=== PATIENT | male | born 1935 | race Caucasian/White ===

== ENCOUNTER → 2016-10-21 | Outpatient (CLI) | payer MEDICARE, OTHER ==
[2016-10-21 12:33] LABS: Non-African American GFR(MDRD) >60 (>60 ml/min/1.73 sqM)
--- NOTE | 2016-10-21 14:27 | MR ---
EXAMINATION TYPE: MR brain and iac wo/w con DATE OF EXAM: 10/21/2016 COMPARISON: NONE HISTORY: acoustic nerve disorder hearing loss, left TECHNIQUE: Multiplanar, multisequence images of the internal auditory canals, brain and brainstem are all perfor med without and with IV contrast, utilizing 20 mL intravenous MultiHance . FINDINGS: Diffusion weighted images demonstrate no evidence of a recent infarct or other diffusion ab normality. There is no worrisome extra-axial fluid collection. The ventricular system and cisternal spaces are normal in size and appearance. The brain volume is age appropriate. There are scattered foci of T2 hyperintensity seen throughout the deep and periventricular white matter. Lesions are nons pecific in appearance and distribution. Largest measures 9 x 8 mm deep left parietal white matter on FLAIR axial image 16. Midline structures demonstrate normal morphology. The craniocervical junction appears within normal limits. Post contrast images demonstrate no abnormal enhancement. The dural venous sinuses appear pa tent. The globes are intact bilaterally. Visualized paranasal sinuses are clear. Dedicated IAC imaging shows minimal increased fluid signal inferior deep left mastoid air cells on ax ial image 7 series 701. Superior to this the vestibulocochlear complexes are symmetric and felt withi n normal limits. No suspicious enhancing cerebellopontine angle mass is identified bilaterally. IMPRESSION: 1. Mild to moderate nonspecific white matter changes most likely on basis of product of chronic small vessel ischemic change in patient this age. 2. Possible mild deep inferior left mastoiditis, clinical correlation advised.
== END | disposition home or self-care (01) ==
LOC: RADMRIMAIN 11:52
PROVIDERS: ATTEND Otolaryngology
DX: R90.82 White matter disease, unspecified (principal); H91.90 Unspecified hearing loss, unspecified ear
CPT/HCPCS: 82565; 70553; A9577

== ENCOUNTER → 2017-05-19 | Outpatient (CLI) | payer MEDICARE, OTHER ==
--- NOTE | 2017-05-19 12:05 | CT ---
EXAMINATION TYPE: CT sinus wo con DATE OF EXAM: 05/19/2017 COMPARISON: NONE HISTORY: Sinus drainage and congestion for years CT DLP: 618.1 mGycm. Automated Exposure Control for Dose Reduction was Utilized. TECHNIQUE: CT scan of the sinuses is performed without contrast, axial images are obtained, coronal r eformatted images are also reviewed. FINDINGS: There is a small mucous retention cyst involving the base of the right maxillary sinus and mild mucosal thickening involving ethmoid air cells. There is to be evidence of previous surgery invo lving the ostium of the maxillary sinus which is patent bilaterally. Slight nasal septum deviation fraser spected. Visualized portion of mastoid air cells show no abnormal opacification. The globes are intact bilate rally. IMPRESSION: 1. Postsurgical change with the ostium of the maxillary sinuses widely patent. 2. Minimal changes of chronic sinusitis.
== END | disposition home or self-care (01) ==
LOC: RADCTMAIN 11:30
PROVIDERS: ATTEND Otolaryngology
DX: J32.9 Chronic sinusitis, unspecified (principal); Z98.890 Other specified postprocedural states
CPT/HCPCS: 70486

== ENCOUNTER 2017-07-13 07:53 | Day surgery (SDC) | payer MEDICARE, OTHER ==
[2017-07-12 09:21] VITALS: BMI 27.2
[~2017-07-13 07:53] MED LIST: FAMOTIDINE 20 MG/2 ML VIAL IV ONE; LACTATED RINGERS 1,000 ML IV SCH; ONDANSETRON 4 MG/2 ML VIAL IVP ONE; Pre Op ABX Message 1 EACH MISC MISCELLANE ONE
[2017-07-13] MEDS ORDERED: DEXAMETHASONE SOD PHOSPHATE 10 MG/ML 1 ML VIAL IV ONE (08:41)
[2017-07-13] MEDS ORDERED: ONDANSETRON 4 MG/2 ML VIAL IVP ONE (08:41)
[2017-07-13] MEDS ORDERED: LIDOCAINE 1% 20 ML VIAL (10MG/ML) FOR IV START INTRADERMA ONE (08:41)
[2017-07-13] MEDS ORDERED: LIDOCAINE 1% INJ 10MG/ML (20 ML MDV) ONE (09:40)
[2017-07-13] MEDS ORDERED: SUCCINYLCHOLINE CHLORIDE 100 MG/5 ML SYR IV ONE (09:40)
[2017-07-13] MEDS ORDERED: MIDAZOLAM 2 MG/2 ML VIAL ONE (09:40)
[2017-07-13] MEDS ORDERED: fentaNYL (PF) 50 MCG/ML 2 ML AMP ONE (09:40)
[2017-07-13] MEDS ORDERED: PROPOFOL 10 MG/ML 20 ML VIAL IV ONE (09:40)
[2017-07-13] MEDS ORDERED: LIDOCAINE 1%-EPI 1:100,000 20 ML VIAL SQ ONE (09:56)
[2017-07-13] MEDS ORDERED: CIPROFLOXACIN-DEXAMETH 0.3-0.1% DROPS 7.5 ML BTL LEFT EAR ONE (09:56)
[2017-07-13] MEDS ORDERED: OXYMETAZOLINE 0.05% NASL SPRAY 1 SPRAY BOTTLE NASAL ONE (10:11)
[2017-07-13 10:36] VITALS: TEMP 97
--- NOTE | 2017-07-13 10:38 | P.OP ---
Date of Procedure: 07/13/17 Preoperative Diagnosis: Left mastoiditis Left eustachian tube dysfunction Left hypertrophy of the posterior nasal inferior turbinate. Left tympanic membranes perforation from infection Left vallecular mass Postoperative Diagnosis: Same Procedure(s) Performed: Left direct microscopic tympanostomy and tube placement utilizing a triune tube. Left middle ear lavage Left myringoplasty Left eustachian tuboplasty endoscopic Left submucosal resection of the posterior inferior turbinate with outfracturing compression Direct microscopic laryngoscopy with biopsy of a left vallecular mass Anesthesia: GETA Surgeon: Jamil Peter Estimated Blood Loss (ml): 5 Pathology: other (Left vallecular mass) Condition: stable Disposition: PACU Indications for Procedure: This patient had a left-sided mastoiditis and a persistent station tube dysfunction. Left tube placement was recommended that the patient has had persistent infection on the left side. He was also found incidentally to have a vallecular mass and a biopsy was recommended. All risks, benefits, and alternative therapies were discussed. Consent was obtained and all questions were answered. Operative Findings: Patient was found have a diseased left tympanic membrane with breakdown. A myringoplasty was needed on the left side after tube placement. Patient was found have a large amount of edematous material in the eustachian tube. Patient had a left vallecular mass Description of Procedure: Patient was taken to the operative room and placed in the supine position. A general inhalation anesthetic was administered to the patient by mask and subsequently intubated with a cuffed endotracheal tube by the department of anesthesia with a functioning IV line in place. The patient was monitored throughout the entire case by the department of anesthesia. The left ear was visualized with a 250 mm microscope and the left ear drum was identified and found be erythematous there is a large amount of granulation tissue and breakdown around the inferior portion of the tympanic membrane. This diseased tissue was removed and a perforation was identified. We prepped the drumhead around this perforation and we cut a bio design graft and placed it as an overlay graft to repair this diseased tissue. We then made a tympanostomy incision inferiorly on the opposite side of the eardrum and a triune tube was placed and fluid was suctioned. A middle ear lavage was performed with Betadine and saline. After the left tympanic membrane whole was patched with a bio design graft and a left tube was placed and lavage was performed instrumentation was removed from the left ear we then paid attention to the nose were endoscopically we went into the nose with a 0 endoscope and identified the eustachian tube orifice we removed with a microdebrider the posterior portion the inferior turbinate submucosally and after we did a submucosal resection we did and outfracturing compression with a Sensdata nasal elevator. That opened up the eustachian tube orifice on the left side we then inserted and the clamp balloon in the standard fashion and inflated this in a standard fashion and then the station tuboplasty was performed utilizing balloon technology and endoscopic visualization. Instrumentation was removed attention was then paid to the mouth where tooth guard was placed and a Jako laryngoscope was placed into the patient's mouth with care to avoid any trauma to the lips teeth gums and tongue. Mouth was opened tongue was depressed and the entire [place] and hypopharynx was evaluated including the piriform sinus epiglottic folds Treutlen cords base of tongue etc. etc. A left vallecular mass was identified magnified with a endoscope and then biopsies were performed. We utilized the Zeiss microscope for visualization lysing a variable degree microscope. Once this lesion was biopsied and removed all instrumentation was removed and the patient tolerated this well. Follow-up will be in the office in 1 week.
[2017-07-13 12:02] VITALS: RESP 16
[2017-07-13 12:21] VITALS: BP 165/72; PULSE 75
== END 2017-07-13 12:48 | disposition home or self-care (01) ==
LOC: OR 07:53
PROVIDERS: ATTEND Otolaryngology
DX: J39.2 Other diseases of pharynx (principal); H70.92 Unspecified mastoiditis, left ear; H69.92 Unspecified Eustachian tube disorder, left ear; J34.3 Hypertrophy of nasal turbinates; H72.92 Unspecified perforation of tympanic membrane, left ear; H65.492 Other chronic nonsuppurative otitis media, left ear; J44.9 Chronic obstructive pulmonary disease, unspecified; H91.20 Sudden idiopathic hearing loss, unspecified ear; J30.9 Allergic rhinitis, unspecified; M19.90 Unspecified osteoarthritis, unspecified site; K21.9 Gastro-esophageal reflux disease without esophagitis; K44.9 Diaphragmatic hernia without obstruction or gangrene; Z79.51 Long term (current) use of inhaled steroids; Z79.899 Other long term (current) drug therapy; Z79.2 Long term (current) use of antibiotics; Z79.82 Long term (current) use of aspirin; Z79.1 Long term (current) use of non-steroidal anti-inflammatories (NSAID); Z88.5 Allergy status to narcotic agent; Z88.8 Allergy status to other drugs, medicaments and biological substances; Z91.011 Allergy to milk products; Z91.018 Allergy to other foods; Z91.09 Other allergy status, other than to drugs and biological substances; Z87.891 Personal history of nicotine dependence
CPT/HCPCS: 88305; 69620; 30140; 31536; C1763; J2250; J1100; J2405; J2001; J3010; J0330; J2704

== ENCOUNTER → 2020-04-03 | Outpatient (CLI) | payer MEDICARE, OTHER ==
[2020-04-03 12:23] LABS: Basophils % (A) 1 %; Eosinophils # (A) 0.2 k/uL (0-0.7); Eosinophils % (A) 4 %; HGB 12.2 gm/dL (13.0-17.5); Lymphocytes # (A) 1.1 k/uL (1.0-4.8); Lymphocytes % (A) 21 %; MCH 25.7 pg (25.0-35.0); MCHC 32.1 g/dL (31.0-37.0); MCV 80.1 fL (80.0-100.0); Mean Platelet Volume 7.5; Monocytes # (A) 0.3 k/uL (0-1.0); Monocytes % (A) 6 %; Neutrophils # (A) 3.4 k/uL (1.3-7.7); Neutrophils % (A) 66 %; Platelet Count 233 k/uL (150-450); RBC 4.74 m/uL (4.30-5.90); RDW 14.7 % (11.5-15.5); WBC 5.2 k/uL (3.8-10.6)
[2020-04-03 12:43] LABS: Potassium 4.5 mmol/L (3.5-5.1)
== END | disposition home or self-care (01) ==
LOC: LABPAT 11:32
PROVIDERS: ATTEND Urology
DX: Z01.818 Encounter for other preprocedural examination (principal); G56.01 Carpal tunnel syndrome, right upper limb; M65.351 Trigger finger, right little finger
CPT/HCPCS: 80051; 85025

== ENCOUNTER 2020-04-07 12:04 | Day surgery (SDC) | payer MEDICARE, OTHER ==
[2020-03-30 14:25] VITALS: BMI 26.8
--- NOTE | 2020-04-06 09:40 | HP ---
HISTORY AND PHYSICAL CHIEF COMPLAINT: Right hand pain and numbness along with right fifth digit trrggering. HISTORY OF PRESENT ILLNESS: Patient is an 84-year-old, right-hand dominant, retired male who presents with a several year history of progressive right hand pain and numbness along with recent right fifth digit triggering. He notes his symptoms are worse in the morning. He has numbness and weakness. He notes catching and locking of the small finger. He has had history of previous trigger finger releases and other digits. PAST MEDICAL HISTORY: Past medical history significant for arthritis and asthma along with reflux disease. PAST SURGICAL HISTORY: Significant bilateral hand trigger finger release. CURRENT MEDICATIONS: Aspirin, ranitidine, sertraline, Ventolin. He notes allergies to STATINS. FAMILY HISTORY: Significant for cancer. SOCIAL HISTORY: Negative for current tobacco or alcohol use. 16 POINT REVIEW OF SYSTEMS: Otherwise is reviewed and is noncontributory. PHYSICAL EXAMINATION: On examination, the patient is approximately 5 foot 9, 187 pounds of mesomorphic habitus. HEENT: Exam is nonfocal. NECK: Supple. He is nontender about the right shoulder and elbow. On examination of his right wrist, he has a positive carpal tunnel compression test. He has severe thenar atrophy. Adductor pollicis brevis strength is 4/5. Light touch is diffusely diminished in all his digits. There is catching and locking of the small finger with flexion. He is tender over the A1 heide of the small finger. 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 IMPRESSION: 1. Symptom for right carpal tunnel syndrome-severe. 2. Right fifth digit trigger finger. RECOMMENDATIONS: I talked to the patient at length regarding his condition and treatment options. At this point, he is quite symptomatic despite previous extensive conservative measures with bracing and injections. After thorough discussion, he opts to proceed with surgery. We will plan to proceed with right carpal tunnel release in addition to right small finger trigger release. We will likely perform that as an outpatient procedure utilizing local anesthetic and IV sedation. MMODL / IJN: [id number] /
[~2020-04-07 12:04] MED LIST changes: +DEXAMETHASONE SOD PHOSPHATE 4 MG/ML 1 ML VIAL IV ONE; -FAMOTIDINE 20 MG/2 ML VIAL IV ONE; +HYDROmorphone 0.5 MG/0.5 ML SYRINGE IVP PRN; +LIDOCAINE 1% (10MG/ML) FOR IV START INTRADERMA PRN; +MIDAZOLAM 2 MG/2 ML VIAL IV PRN; -Pre Op ABX Message 1 EACH MISC MISCELLANE ONE
[2020-04-07 12:32] VITALS: TEMP 96.9
[2020-04-07] MEDS ORDERED: fentaNYL (PF) 50 MCG/ML 2 ML AMP ONE (13:17)
[2020-04-07] MEDS ORDERED: diphenhydrAMINE 50 MG/ML 1 ML VIAL ONE (13:17)
[2020-04-07] MEDS ORDERED: PROPOFOL 10 MG/ML 20 ML VIAL IV ONE (13:17)
[2020-04-07] MEDS ORDERED: MIDAZOLAM 2 MG/2 ML VIAL ONE (13:17)
[2020-04-07] MEDS ORDERED: BUPIVACAINE (PF) 0.25% 30 ML VIAL SQ ONE (13:23)
--- NOTE | 2020-04-07 14:05 | P.OP ---
Date of Procedure: 04/07/20 Preoperative Diagnosis: Right carpal tunnel syndrome/right fifth digit trigger fingersymptomatic Postoperative Diagnosis: Same Procedure(s) Performed: Right carpal tunnel release/fifth digit trigger release Anesthesia: MAC, local Surgeon: Manoj Ham Estimated Blood Loss (ml): 2 Pathology: none sent Condition: stable Disposition: PACU Indications for Procedure: The patient is an 84-year-old male presents with progressive right hand pain and numbness along with right fifth digit triggering/locking despite conservative measures. A discussion of the risks and benefits of operative intervention versus continued conservative measures was made with patient. He opted proceed with surgery. Specific risks of surgery to include infection, neurovascular injury, development of blood clots, possible recurrence of symptoms and need for subsequent procedures was discussed. Informed consent was obtained. Operative Findings: As below Description of Procedure: The patient was brought to the operating room, and after induction of IV sedation the right upper extremity was prepped and draped in normal fashion. The proposed incision site was outlined skin marker in line with the radial aspect the fourth ray extending from the volar wrist crease distally 2-1/2 cm. One quarter percent plain Marcaine was injected into the proposed incision site. 9 mL was utilized. The tourniquet was inflated to 250 mmHg. The skin incision was then made. The skin was incised sharply. Subcutaneous tissues were divided sharply the superficial palmar fascia was identified and split in line with the skin incision. The transverse carpal ligament was identified and transected under direct visualization distally to level the palmar fat pad. Proximal was taken level of the volar wrist crease. A plane above and below the transverse carpal ligament was then bluntly developed with tenotomies. The confluence of the distal forearm fascia and the transverse carpal ligament was then transected under direct visualization proximally with the tines pointed in the ulnar direction. I felt this was adequate proximal release. Neural lysis was not performed. The wound was irrigated with normal saline. Electrocautery was used for hemostasis. The skin was reapproximated with simple 3-0 nylon sutures. A 1 cm incision was then made centered over the fifth digit volar distal crease. Skin was incised sharply. Subcutaneous tissues were divided bluntly. The neurovascular bundles were gently retracted. The A1 heide was identified and transected under direct correct visualization proximal and distal. Tendon excursion was then un impeded. This incision was closed with simple 3-0 nylon sutures. A sterile dressing was applied. The tourniquet was deflated with less than 20 minutes total tourniquet time. Patient was awoken from sedation and transferred to the recovery room in good condition. Blood loss was estimated 2 mL. No complications were incurred. Sponge and needle counts were correct at the end the case.
[2020-04-07 14:11] VITALS: PULSE 57
[2020-04-07 14:21] VITALS: RESP 16
[2020-04-07 14:47] VITALS: BP 158/62
== END 2020-04-07 15:15 | disposition home or self-care (01) ==
LOC: OR 12:04
PROVIDERS: ATTEND Orthopaedic Surgery
DX: G56.01 Carpal tunnel syndrome, right upper limb (principal); M65.351 Trigger finger, right little finger; M19.90 Unspecified osteoarthritis, unspecified site; J45.909 Unspecified asthma, uncomplicated; Z80.9 Family history of malignant neoplasm, unspecified; K21.9 Gastro-esophageal reflux disease without esophagitis; N40.0 Benign prostatic hyperplasia without lower urinary tract symptoms; G43.909 Migraine, unspecified, not intractable, without status migrainosus; K44.9 Diaphragmatic hernia without obstruction or gangrene; Z79.1 Long term (current) use of non-steroidal anti-inflammatories (NSAID); Z98.890 Other specified postprocedural states; Z79.82 Long term (current) use of aspirin; Z79.899 Other long term (current) drug therapy; Z91.011 Allergy to milk products; Z91.018 Allergy to other foods; Z91.048 Other nonmedicinal substance allergy status; Z88.8 Allergy status to other drugs, medicaments and biological substances
CPT/HCPCS: 64721; 26055; J2250; J1200; J1100; J0690; J2405; J3010; J2704

== ENCOUNTER → 2021-02-12 | Outpatient (CLI) | payer MEDICARE, OTHER ==
--- NOTE | 2021-02-12 08:51 | CT ---
EXAMINATION TYPE: CT chest abdomen wo con DATE OF EXAM: 02/12/2021 COMPARISON: CT abdomen and pelvis December 30, 2013 HISTORY: Hiatal hernia CT DLP: 533.2 mGycm. Automated Exposure Control for Dose Reduction was Utilized. TECHNIQUE: CT scan of the thorax and abdomen are performed with oral but without IV contrast. FINDINGS: LUNGS: The lungs are grossly clear, there is no concerning parenchymal mass or nodule identified. T here is no pleural effusion or pneumothorax seen. The tracheobronchial tree is patent. MEDIASTINUM: Lack of IV contrast is noted to Limited evaluation for adenopathy. There are no greater than 1 cm mediastinal lymph nodes. Trace pericardial effusion is seen anteriorly. Mild to moderate c oronary artery calcification. No cardiomegaly. OTHER: Prominent but hyperdense possibly calcified left axillary lymph nodes. Adjacent streak artifac t from metallic hardware left shoulder level is noted. LIVER/GB: No significant abnormality is appreciated. PANCREAS: No significant abnormality is seen. SPLEEN: No significant abnormality is seen. ADRENALS: No significant abnormality is seen. KIDNEYS: Cortical thinning in both kidneys. Occasional tiny cyst. Findings consistent with chronic me dical renal disease. Possible punctate 1 mm nonobstructing calculus right kidney upper pole level nayla ge 54. No hydronephrosis seen bilaterally. BOWEL: Stable moderate to large sized fixed hiatal hernia with abnormal twisting of the herniated por tion of stomach. No significant change from 2014. Oral contrast does not reach glottic level. No susp icious small or large bowel dilatation. LYMPH NODES: No greater than 1cm abdominal lymph nodes are appreciated. OSSEOUS STRUCTURES: Mild to moderate multilevel spurring with multilevel mild disc space narrowing an d vacuum disc phenomenon. Most prominent disc space narrowing is at the thoracolumbar and the lumbosa cral junctions. Slight grade 1 anterolisthesis L4 on L5. Vacuum disc phenomenon in the lower lumbar l evels. OTHER: No significant additional abnormality is seen. IMPRESSION: Stable moderate to large sized fixed hiatal hernia with twisting of the herniated stomach . No significant change from 2014 study.
== END | disposition home or self-care (01) ==
LOC: RADCTMAIN 06:53
PROVIDERS: ATTEND Pediatrics
DX: K44.9 Diaphragmatic hernia without obstruction or gangrene (principal)
CPT/HCPCS: 71250; 74150

== ENCOUNTER → 2021-07-02 | Outpatient (CLI) | payer OTHER | END | disposition home or self-care (01) | LOC: LABWHC1 12:21 | PROVIDERS: ATTEND Pediatrics | DX: Z53.9 Procedure and treatment not carried out, unspecified reason (principal) ==

== ENCOUNTER → 2021-09-24 | Outpatient (CLI) | payer MEDICARE ==
--- NOTE | 2021-09-26 21:16 | CT ---
EXAMINATION TYPE: CT shoulder LT wo con CT DLP: 404.80 mGycm, Automated exposure control for dose reduction was used. DATE OF EXAM: 09/24/2021 6:07 PM COMPARISON: CT chest abdomen pelvis 02/12/2021. CLINICAL INDICATION:Male, 85 years old with history of Z96.612; recent left shoulder sx TECHNIQUE: Axial images were obtained of the left shoulder without the use of IV contrast. Additiona l coronal and sagittal reformatted images and soft tissue and bone window were obtained for review. 3 -D reconstruction was created on a separate workstation. FINDINGS: There is an antibiotic impregnated cement arthroplasty. There is a linear line at the junct ion of the antibiotic infused cement and [place] bone suggest interface rather than fracture. The arm is rotated posteriorly 90 degrees. There is a chronically rotator cuff tear with severe muscle atroph y of the rotator cuff muscles. There is superior subluxation of the joint into the acromion undersurf ronnie. There is bony remodeling of the acromion with os acromiale versus stress fracture. The glenoid i s eroded and remodeled with at least 18 degrees of glenoid retroversion. There is bony and metallic d ebris within the joint. There is a moderate to large effusion extends from the head down the proximal shaft. Multilevel disc degeneration changes seen throughout the spine. Multiple partially calcified lymph no nannette are seen within the axilla and clavicular region on the left. Partially calcified lymph nodes are similar to prior CT IMPRESSION: 1. Antibiotic impregnated cement arthroplasty with large joint effusion with osseous and metallic de bris. 2. Superior subluxation of the humerus respect to the glenoid which erodes into the acromion where t here is either a os acromiale versus stress fracture of the acromion. 3. Live rotator cuff muscle atrophy. 4. Additional fat findings as described above.
== END | disposition home or self-care (01) ==
LOC: RADCTMAIN 17:34
PROVIDERS: ATTEND Orthopaedic Surgery
DX: M25.412 Effusion, left shoulder (principal); M62.50 Muscle wasting and atrophy, not elsewhere classified, unspecified site; S43.002A Unspecified subluxation of left shoulder joint, initial encounter; Z96.612 Presence of left artificial shoulder joint

== ENCOUNTER 2022-02-05 15:33 | Emergency (ER) | payer MEDICARE ==
[2022-02-05 15:54] VITALS: TEMP 98.2
--- NOTE | 2022-02-05 17:54 | ED ---
Recheck HPI - General Chief Complaint: Recheck/Abnormal Lab/Rx Stated Complaint: Post-op L shoulder issue Time Seen by Provider: 02/05/22 16:12 Source: patient Mode of arrival: ambulatory Limitations: no limitations - History of Present Illness Initial Comments: Patient is an 86-year-old male presents to the emergency room with his granddaughter with concerns of increased amount of drainage from his surgical site to his left shoulder. He reports that he was advised to seek medical attention if the dressing became saturated. He states that he felt drainage from the wound and was concerned that his site was bleeding significantly. He denies any increased pain, purulent drainage, foul odor, fevers, chills or lack of adherence to a mobilization. He attempted to contact his surgeon but did not receive a call back. He has had multiple surgeries on his left shoulder with his most recent one being completed 5 days ago. In addition to his osteoarthritis history his past medical history significant for hyperlipidemia, depression and prostate disease. - Related Data Home Medications Medication Instructions Recorded Confirmed Aspirin [Adult Low Dose Aspirin EC] 81 mg PO DAILY 07/12/17 04/07/20 Fexofenadine HCl [Sade Allergy] 180 mg PO DAILY 07/12/17 04/07/20 Finasteride [Proscar] 5 mg PO HS 07/12/17 04/07/20 Fluticasone Nasal [place] [Flonase 2 spray EA NOSTRIL HS 07/12/17 04/07/20 Nasal [place]] Pantoprazole Sodium 40 mg PO DAILY 07/12/17 04/07/20 Sertraline [Zoloft] 100 mg PO DAILY 07/12/17 04/07/20 Alfuzosin HCl [Uroxatral] 10 mg PO DAILY 03/30/20 04/07/20 Celecoxib [CeleBREX] 200 mg PO BID 03/30/20 04/07/20 Famotidine [Pepcid] 40 mg PO HS 03/30/20 04/07/20 Allergies Allergy/AdvReac Type Severity Reaction Status Date / Time Beef Containing Products Allergy Unknown Verified 02/05/22 15:54 [Beef] Milk Containing Products Allergy Unknown Verified 02/05/22 15:54 [Dairy] Qaczcnm-QMN-UrN Reductase Allergy leg cramps Verified 02/05/22 15:54 Inhibitor [Luewrzs-Qgq-Ihf Reductase Inhibitor] dust,mold,grass,trees Allergy Unknown Uncoded 02/05/22 15:54 grains Allergy Unknown Uncoded 02/05/22 15:54 Review of Systems ROS Statement: Those systems with pertinent positive or pertinent negative responses have been documented in the HPI. ROS Other: All systems not noted in ROS Statement are negative. Past Medical History Past Medical History: Hyperlipidemia, Osteoarthritis (OA), Pneumonia, Prostate Disorder Additional Past Medical History / Comment(s): Hiatal hernia History of Any Multi-Drug Resistant Organisms: None Reported Past Surgical History: Appendectomy, Joint Replacement, Orthopedic Surgery, Tonsillectomy Additional Past Surgical History / Comment(s): nikki trigger finger,nikki thumb surg., arthroscopy right knee & left shoulder, right should surg.,cataracts removed,nasal surg., nikki knees replaced, left shoulder replaced, right hip replaced Past Anesthesia/Blood Transfusion Reactions: No Reported Reaction Past Psychological History: No Psychological Hx Reported Smoking Status: Former smoker Past Alcohol Use History: None Reported Past Drug Use History: None Reported General Exam General appearance: alert, in no apparent distress Head exam: Present: atraumatic, normocephalic, normal inspection Eye exam: Present: normal appearance, PERRL, EOMI. Absent: scleral icterus, conjunctival injection, periorbital swelling ENT exam: Present: normal exam, mucous membranes moist Neck exam: Present: normal inspection Respiratory exam: Absent: respiratory distress, accessory muscle use Rectal exam: Present: deferred Left Shoulder Exam: Present: swelling (trace), ecchymosis (mild), other (incision anterior aspect dylan intact scant serosangious drainage from mid distal end of incision). Absent: full ROM, tenderness, abrasion, dislocation, erythema Vascular: Absent: vascular compromise Back exam: Present: normal inspection Neurological exam: Present: alert, oriented X3, CN II-XII intact Psychiatric exam: Present: normal affect, normal mood Skin exam: Present: other (incision as above) Course Vital Signs 02/05/22 02/05/22 15:52 18:11 Temperature 98.2 F Pulse Rate 70 72 Respiratory 16 20 Rate Blood Pressure 104/75 140/68 O2 Sat by Pulse 97 98 Oximetry Medical Decision Making - Medical Decision Making 86-year-old male presenting to the emergency room with concerns of drainage from his new surgical incision site in which the surgical dressing has become titrated. No indication for diagnostic or laboratory settings in the setting of lack of erythema, edema enteric female, warm purulent or bloody drainage. No significant edema around incision. Attempted to page patient surgeon twice without any response. Will dress incision with 4 x 4's, ABDs and Kerlix. Shoulder immobilizer intact during entire exam. Advised to continue to remain intact per surgeon's instructions. Advised follow-up with surgeon per their recommendations. Return parameters to the emergency room discussed. Case discussed with Dr. Adkins. Disposition Clinical Impression: Encounter for wound re-check Disposition: HOME SELF-CARE Condition: Stable Instructions (If sedation given, give patient instructions): Joint Incision and Drainage (DC) Additional Instructions: Please keep wound clean and dry. Monitor for signs and symptoms of infection. Please follow-up with your surgeon as scheduled. Please return to the Emergency Department if symptoms worsen or any other concerns. Is patient prescribed a controlled substance at d/c from ED?: No Referrals: Surinder Mckay MD [Primary Care Provider] - 1-2 days Murphy Rodriguez MD [REFERRING] - 02/15/22 (as scheduled) Time of Disposition: 17:52
[2022-02-05 18:14] VITALS: BP 140/68; PULSE 72; RESP 20
== END 2022-02-05 18:14 | disposition home or self-care (01) ==
LOC: EC 15:33
DX: Z48.01 Encounter for change or removal of surgical wound dressing (principal); E78.5 Hyperlipidemia, unspecified; Z87.891 Personal history of nicotine dependence; Z79.899 Other long term (current) drug therapy; Z91.018 Allergy to other foods; Z91.011 Allergy to milk products
CPT/HCPCS: 99282

== ENCOUNTER 2022-12-27 14:20 | Emergency (ER) | payer OTHER, MEDICARE ==
--- NOTE | 2022-12-27 14:33 | ED ---
Extremity Problem HPI - General Source: patient, RN notes reviewed Mode of arrival: ambulatory Limitations: no limitations - History of Present Illness MD Complaint: extremity pain <Mary Kate Welch - Last Filed: 12/27/22 14:33> - History of Present Illness -: days(s) (3) Location: left, upper extremity (shoulder) History of Same: Yes Severity scale (1-10): 8 Consistency: intermittent, now resolved Improves with: immobilization Worsens with: palpation, other (movement) Associated Symptoms: denies other symptoms <Maco Cervantes - Last Filed: 12/27/22 20:16> - General Chief complaint: Extremity Problem,Nontraumatic Stated complaint: lt shoulder injury Time Seen by Provider: 12/27/22 14:30 - History of Present Illness Initial comments: This is an 87 year old male who presents to the emergency department for concerns of a left shoulder dislocation. He went from sitting to a standing position, bending his arms in the process, when his left shoulder proceeded to pop out of place. States that he has had problems with his shoulder going in and out several times over the last 18 months. This usually goes back into place on its own, however that was not the case this time. (Mary Kate Welch) First encounter with the patient in the emergency room, patient eating dinner with family in room. Patient is an 87-year-old male alert and oriented 4 that presents with family complaining of left shoulder pain. Patient states he dislocated his shoulder twice over the past 3 days. Last dislocation before this was a year ago. States he's had surgery on this shoulder 12 years ago and has been having problems with dislocations since. States that normally it goes back in on its own. This time still having pain worse with movement concerned for dislocation. Has been having physical therapy for past 18 months. His [facility] doctor was Dr. Ortiz. (Maco Cervantes) - Related Data Home Medications Medication Instructions Recorded Confirmed Aspirin [Adult Low Dose Aspirin EC] 81 mg PO DAILY 07/12/17 04/07/20 Fexofenadine HCl [Sade Allergy] 180 mg PO DAILY 07/12/17 04/07/20 Finasteride [Proscar] 5 mg PO HS 07/12/17 04/07/20 Fluticasone Nasal [place] [Flonase 2 spray EA NOSTRIL HS 07/12/17 04/07/20 Nasal [place]] Pantoprazole Sodium 40 mg PO DAILY 07/12/17 04/07/20 Sertraline [Zoloft] 100 mg PO DAILY 07/12/17 04/07/20 Alfuzosin HCl [Uroxatral] 10 mg PO DAILY 03/30/20 04/07/20 Celecoxib [CeleBREX] 200 mg PO BID 03/30/20 04/07/20 Famotidine [Pepcid] 40 mg PO HS 03/30/20 04/07/20 Allergies Allergy/AdvReac Type Severity Reaction Status Date / Time Beef Containing Products Allergy Unknown Verified 03/24/22 14:17 [Beef] Milk Containing Products Allergy Unknown Verified 03/24/22 14:17 [Dairy] Wjmhjhd-IMB-ExW Reductase Allergy leg cramps Verified 03/24/22 14:17 Inhibitor [Lnlemgb-Zzh-Gon Reductase Inhibitor] dust,mold,grass,trees Allergy Unknown Uncoded 02/05/22 15:54 grains Allergy Unknown Uncoded 02/05/22 15:54 Review of Systems ROS Other: All systems not noted in ROS Statement are negative. <Mary Kate Welch - Last Filed: 12/27/22 14:33> ROS Other: All systems not noted in ROS Statement are negative. <Maco Cervantes - Last Filed: 12/27/22 20:16> ROS Statement: Those systems with pertinent positive or pertinent negative responses have been documented in the HPI. Past Medical History Past Medical History: Hyperlipidemia, Osteoarthritis (OA), Pneumonia, Prostate Disorder Additional Past Medical History / Comment(s): Hiatal hernia History of Any Multi-Drug Resistant Organisms: None Reported Past Surgical History: Appendectomy, Joint Replacement, Orthopedic Surgery, Tonsillectomy Additional Past Surgical History / Comment(s): nikki trigger finger,nikki thumb surg., arthroscopy right knee & left shoulder, right should surgx5.,cataracts removed,nasal surg., nikki knees replaced, left shoulder replaced, right hip replaced Past Anesthesia/Blood Transfusion Reactions: No Reported Reaction Past Psychological History: No Psychological Hx Reported Smoking Status: Former smoker Past Alcohol Use History: None Reported Past Drug Use History: None Reported <Mary Kate Welch - Last Filed: 12/27/22 14:33> General Exam <Mary Kate Welch - Last Filed: 12/27/22 14:33> Limitations: no limitations General appearance: alert, in no apparent distress Head exam: Present: atraumatic, normocephalic Eye exam: Present: normal appearance. Absent: scleral icterus, conjunctival injection, periorbital swelling ENT exam: Present: mucous membranes moist Neck exam: Present: full ROM. Absent: meningismus Respiratory exam: Absent: respiratory distress, accessory muscle use Cardiovascular Exam: Present: regular rate Left Shoulder Exam: Present: tenderness, crepitus. Absent: full ROM, swelling, abrasion, laceration, ecchymosis Upper Arm exam: Absent: tenderness, swelling, abrasion, laceration, ecchymosis, crepidus, dislocation, erythema Elbow exam: Present: full ROM. Absent: tenderness, erythema, effusion, pain w/ pronation/supination, tenderness over radial head Forearm Wrist exam: Absent: tenderness Hand Wrist exam: Present: full ROM. Absent: tenderness Vascular: Present: normal capillary refill, radial pulse. Absent: vascular compromise Back exam: Absent: tenderness Neurological exam: Present: alert, oriented X3 Psychiatric exam: Present: normal affect, normal mood Skin exam: Present: warm, dry, normal color. Absent: cyanosis, diaphoretic, petechiae, pallor <Maco Cervantes - Last Filed: 12/27/22 20:16> - General Exam Comments Initial Comments: Visual Physical Exam Vital signs reviewed General: Well-appearing, nontoxic, no acute distress. Head: Normocephalic, atraumatic Eyes: PERRLA, EOMI ENT: Airway patent Chest: Nonlabored breathing Skin: No visual rash, normal skin tone Neuro: Alert and oriented 3 Musculoskeletal: Left shoulder deformity I performed the QuickNote portion of this chart. Signed Mary Kate Welch PA-C. (Mary Kate Welch) Course Vital Signs 12/27/22 14:30 Temperature 97 F L Pulse Rate 62 Respiratory 20 Rate Blood Pressure 121/67 O2 Sat by Pulse 99 Oximetry Medical Decision Making <Maco Cervantes - Last Filed: 12/27/22 20:16> - Medical Decision Making Was pt. sent in by a medical professional or institution ([facility], [facility], urgent care, hospital, or care home...) When possible be specific @ -No Did you speak to anyone other than the patient for history (EMS, parent, family, police, friend...)? What history was obtained from this source @ -Family at bedside states patient's orthopedic doctor is out of [place], last dislocation was one year ago, has been having physical therapy over the past 18 months for left shoulder Did you review nursing and triage notes (agree or disagree)? Why? @ -I reviewed and agree with nursing and triage notes Were old charts reviewed (outside hosp., previous admission, EMS record, old EKG, old radiological studies, urgent care reports/EKG's, care home records)? Report findings @ -Left shoulder x-ray March 2022 Differential Diagnosis (chest pain, altered mental status, abdominal pain women, abdominal pain men, vaginal bleeding, weakness, fever, dyspnea, syncope, headache, dizziness, GI bleed, back pain, seizure, CVA, palpatations, mental health, musculoskeletal)? @ -Dislocation, fracture, osteoarthritis, internal derangement left shoulder this is not an all inclusive list EKG interpreted by me (3pts min.). @ -n/a X-rays interpreted by me (1pt min.). @ -yes X-ray of the left shoulder interpreted by me shows left shoulder arthroplasty and hardware intact, widened joint, no evidence of acute fracture. X-ray reviewed with Dr. Wagner. CT interpreted by me (1pt min.). @ -None done U/S interpreted by me (1pt. min.). @ -None done What testing was considered but not performed or refused? (CT, X-rays, U/S, labs)? Why? @ -None What meds were considered but not given or refused? Why? @ -None Did you discuss the management of the patient with other professionals (professionals i.e. Dr., PA, [employer], lab, RT, psych nurse, socially responsible investment adviser, flue lining dipper, teacher, human resources officer, casey saw operator)? Give summary @ -No Was smoking cessation discussed for >3mins.? @ -No Was critical care preformed (if so, how long)? @ -No Were there social determinants of health that impacted care today? How? (Homelessness, low income, unemployed, alcoholism, drug addiction, transportation, low edu. Level, literacy, decrease access to med. care, detention, rehab)? @ -No Was there de-escalation of care discussed even if they declined (Discuss DNR or withdrawal of care, Hospice)? DNR status @ -No What co-morbidities impacted this encounter? (DM, HTN, Smoking, COPD, CAD, Cancer, CVA, ARF, Chemo, Hep., AIDS, mental health diagnosis, sleep apnea, morbid obesity)? @ -Osteoarthritis Was patient admitted / discharged? Hospital course, mention meds given and route, prescriptions, significant lab abnormalities, going to OR and other pertinent info. @ -Discharged First encounter with the patient in the emergency room, patient eating dinner with family in room. Patient is an 87-year-old male alert and oriented 4 that presents with family complaining of left shoulder pain. Patient states he dislocated his shoulder twice over the past 3 days. Last dislocation before this was a year ago. States he's had surgery on this shoulder 12 years ago and has been having problems with dislocations since. States that normally it goes back in on its own. This time still having pain worse with movement concerned for dislocation. Has been having physical therapy for past 18 months. His [facility] doctor is Dr. Ortiz. Radiologist interpretation left shoulder xr no acute osseous pathology. Left shoulder arthroplasty changes with hardware appearing intact. No significant change from prior. On physical exam patient is unable to lift his arm past 90 degrees. Patient is neurovascularly intact. Patient is currently wearing a sling that has been provided to him in the past. He was instructed to continue wearing the sling and follow-up with his orthopedic doctor this week. Patient and family are agreeable to this plan of care. Case discussed with Dr. Wagner Undiagnosed new problem with uncertain prognosis? @ -No Drug Therapy requiring intensive monitoring for toxicity (Heparin, Nitro, Insulin, Cardizem)? @ -No Were any procedures done? @ -No Diagnosis/symptom? @ -Internal derangement left shoulder Acute, or Chronic, or Acute on Chronic? @ -Acute on chronic Uncomplicated (without systemic symptoms) or Complicated (systemic symptoms)? @ -Uncomplicated Side effects of treatment? @ -No Exacerbation, Progression, or Severe Exacerbation? @ -No Poses a threat to life or bodily function? How? (Chest pain, USA, [place], pneumonia, PE, COPD, DKA, ARF, appy, cholecystitis, CVA, Diverticulitis, Homicidal, Suicidal, threat to staff... and all critical care pts) @ -No (Maco Cervantes) Disposition <Mary Kate Welch - Last Filed: 12/27/22 14:33> Is patient prescribed a controlled substance at d/c from ED?: No Time of Disposition: 19:52 <Maco Cervantes - Last Filed: 12/27/22 20:16> Clinical Impression: Shoulder pain, left, Internal derangement of left shoulder Disposition: HOME SELF-CARE Condition: Good Instructions (If sedation given, give patient instructions): Shoulder Pain (ED), Shoulder Immobilizer (ED) Additional Instructions: Wear sling as previously provided. Follow-up with your orthopedic doctor this week. Return to the emergency room with any new or concerning symptoms. Referrals: Surinder Mckay MD [Primary Care Provider] - 1-2 days
--- NOTE | 2022-12-27 14:58 | XR ---
EXAMINATION TYPE: XR shoulder complete LT DATE OF EXAM: 12/27/2022 2:42 PM INDICATION: Patient age:Male; 87 years old; Reason for study: Pain; COMPARISON: 03/24/2022 TECHNIQUE: The left shoulder was examined in AP, internally rotated and scapular Y projections. FINDINGS: Left shoulder arthroplasty changes hardware appears intact. Calcifications are present around the jakub nt likely postsurgical. Visualized chest is unremarkable. Osteophyte formation of the left common clavicular joint. No evidence for fracture. No dislocation. IMPRESSION: 1. No acute osseous pathology. 2. Left shoulder arthroplasty changes with hardware appearing intact. No significant change from juanj[place] or.
[2022-12-27 20:15] VITALS: BP 153/63; PULSE 68; RESP 18; TEMP 97.9
== END 2022-12-27 20:15 | disposition home or self-care (01) ==
LOC: EC 14:20
DX: M24.812 Other specific joint derangements of left shoulder, not elsewhere classified (principal); M19.90 Unspecified osteoarthritis, unspecified site; Z87.891 Personal history of nicotine dependence; Z96.612 Presence of left artificial shoulder joint; Z88.8 Allergy status to other drugs, medicaments and biological substances; Z91.011 Allergy to milk products; Z91.014 Allergy to mammalian meats; Z79.82 Long term (current) use of aspirin; Z79.899 Other long term (current) drug therapy
CPT/HCPCS: 99284

== ENCOUNTER 2022-12-28 18:58 | Emergency (ER) | payer OTHER, MEDICARE ==
[2022-12-28 19:13] VITALS: TEMP 98.1
--- NOTE | 2022-12-28 19:29 | ED ---
General Adult HPI - General Chief complaint: Fall Stated complaint: Fall-left shoulder injury Time Seen by Provider: 12/28/22 19:16 Source: patient, RN notes reviewed, old records reviewed Mode of arrival: ambulatory Limitations: no limitations - History of Present Illness Initial comments: 87-year-old male presents to the emergency room with complaints of left shoulder pain and possible dislocation. Patient was seen yesterday for the same without dislocation. He states that today he was holding onto a trellis that gave way causing him to fall landing on his left shoulder. He felt a pop and again having difficulty with range of motion. His physical therapist told him to come for evaluation. Patient states that he did not hit his head or lose consciousness. No other injuries. -: hour(s) Location: left, upper extremity (shoulder) Radiation: non-radiation Severity scale (1-10): 8 Quality: aching Consistency: intermittent Improves with: immobilization Worsens with: movement Associated Symptoms: denies other symptoms Treatments Prior to Arrival: none - Related Data Home Medications Medication Instructions Recorded Confirmed Aspirin [Adult Low Dose Aspirin EC] 81 mg PO DAILY 07/12/17 04/07/20 Fexofenadine HCl [Sade Allergy] 180 mg PO DAILY 07/12/17 04/07/20 Finasteride [Proscar] 5 mg PO HS 07/12/17 04/07/20 Fluticasone Nasal [place] [Flonase 2 spray EA NOSTRIL HS 07/12/17 04/07/20 Nasal [place]] Pantoprazole Sodium 40 mg PO DAILY 07/12/17 04/07/20 Sertraline [Zoloft] 100 mg PO DAILY 07/12/17 04/07/20 Alfuzosin HCl [Uroxatral] 10 mg PO DAILY 03/30/20 04/07/20 Celecoxib [CeleBREX] 200 mg PO BID 03/30/20 04/07/20 Famotidine [Pepcid] 40 mg PO HS 03/30/20 04/07/20 Allergies Allergy/AdvReac Type Severity Reaction Status Date / Time Beef Containing Products Allergy Unknown Verified 12/28/22 19:13 [Beef] Milk Containing Products Allergy Unknown Verified 12/28/22 19:13 [Dairy] Drmgxal-GQO-EhC Reductase Allergy leg cramps Verified 12/28/22 19:13 Inhibitor [Pitldjp-Bjp-Lwn Reductase Inhibitor] dust,mold,grass,trees Allergy Unknown Uncoded 12/28/22 19:13 grains Allergy Unknown Uncoded 12/28/22 19:13 Review of Systems ROS Statement: Those systems with pertinent positive or pertinent negative responses have been documented in the HPI. ROS Other: All systems not noted in ROS Statement are negative. Past Medical History Past Medical History: Hyperlipidemia, Osteoarthritis (OA), Pneumonia, Prostate Disorder Additional Past Medical History / Comment(s): Hiatal hernia History of Any Multi-Drug Resistant Organisms: None Reported Past Surgical History: Appendectomy, Joint Replacement, Orthopedic Surgery, Tonsillectomy Additional Past Surgical History / Comment(s): nikki trigger finger,nikki thumb surg., arthroscopy right knee & left shoulder, right should surgx5.,cataracts removed,nasal surg., nikki knees replaced, left shoulder replaced, right hip replaced Past Anesthesia/Blood Transfusion Reactions: No Reported Reaction Past Psychological History: No Psychological Hx Reported Smoking Status: Former smoker Past Alcohol Use History: None Reported Past Drug Use History: None Reported General Exam Limitations: no limitations General appearance: alert, in no apparent distress Head exam: Present: atraumatic, normocephalic, normal inspection Eye exam: Present: normal appearance. Absent: scleral icterus, conjunctival injection, periorbital swelling, periorbital tenderness Neck exam: Present: full ROM. Absent: meningismus Respiratory exam: Absent: respiratory distress, accessory muscle use Cardiovascular Exam: Present: regular rate Extremities exam: Present: normal capillary refill Left Shoulder Exam: Present: tenderness, deformity, crepitus, other (Pain with abduction , pain with external rotation with elbow 90 degrees, unable to move arm behind his back, unable to extend arm to 90 degrees). Absent: full ROM, swelling, abrasion, laceration, ecchymosis, erythema, tenderness over AC joint Upper Arm exam: Present: tenderness (proximal humerus). Absent: full ROM, swelling, abrasion, laceration, ecchymosis, deformity Elbow exam: Absent: tenderness, swelling, erythema Forearm Wrist exam: Present: full ROM. Absent: tenderness, swelling Hand Wrist exam: Present: full ROM. Absent: tenderness, swelling Vascular: Present: normal capillary refill, radial pulse. Absent: vascular compromise Back exam: Absent: tenderness, CVA tenderness (R), CVA tenderness (L), paraspinal tenderness, vertebral tenderness, rash noted Neurological exam: Present: alert, oriented X3 Psychiatric exam: Present: normal affect, normal mood Skin exam: Present: warm, dry, normal color. Absent: cyanosis, diaphoretic, petechiae, pallor Course Vital Signs 12/28/22 12/28/22 19:08 20:47 Temperature 98.1 F 98.1 F Pulse Rate 76 72 Respiratory 20 18 Rate Blood Pressure 128/57 136/62 O2 Sat by Pulse 96 97 Oximetry Medical Decision Making - Medical Decision Making Was pt. sent in by a medical professional or institution (, [facility], [facility], urgent care, hospital, or shelter...) When possible be specific @ -Physical therapist Did you speak to anyone other than the patient for history (EMS, parent, family, police, friend...)? What history was obtained from this source @ -No Did you review nursing and triage notes (agree or disagree)? Why? @ -I reviewed and agree with nursing and triage notes Were old charts reviewed (outside hosp., previous admission, EMS record, old EKG, old radiological studies, urgent care reports/EKG's, shelter records)? Report findings @ -Yesterday's ER records and x-ray of left shoulder, radiologist impression no dislocation or fracture Differential Diagnosis (chest pain, altered mental status, abdominal pain women, abdominal pain men, vaginal bleeding, weakness, fever, dyspnea, syncope, headache, dizziness, GI bleed, back pain, seizure, CVA, palpatations, mental health, musculoskeletal)? @ -Internal derangement left shoulder, left shoulder dislocation EKG interpreted by me (3pts min.). @ -n/a X-rays interpreted by me (1pt min.). @ -yes X-ray of the left shoulder interpreted by me shows no evidence of acute fracture, reverse total shoulder replacement that does not appear to articulate in the cup CT interpreted by me (1pt min.). @ -None done U/S interpreted by me (1pt. min.). @ -None done What testing was considered but not performed or refused? (CT, X-rays, U/S, labs)? Why? @ -None What meds were considered but not given or refused? Why? @ -Patient was offered pain medication and declined Did you discuss the management of the patient with other professionals (professionals i.e. , PA, [employer], lab, RT, psych nurse, social staff worker, therapeutic activities services worker, teacher, major gifts officer, correctional case manager)? Give summary @ -No Was smoking cessation discussed for >3mins.? @ -No Was critical care preformed (if so, how long)? @ -No Were there social determinants of health that impacted care today? How? (Homelessness, low income, unemployed, alcoholism, drug addiction, transportation, low edu. Level, literacy, decrease access to med. care, detention, rehab)? @ -No Was there de-escalation of care discussed even if they declined (Discuss DNR or withdrawal of care, Hospice)? DNR status @ -No What co-morbidities impacted this encounter? (DM, HTN, Smoking, COPD, CAD, Cancer, CVA, ARF, Chemo, Hep., AIDS, mental health diagnosis, sleep apnea, morbid obesity)? @ -Osteoarthritis, left shoulder arthroplasty Was patient admitted / discharged? Hospital course, mention meds given and route, prescriptions, significant lab abnormalities, going to OR and other pertinent info. @ -Discharged 87-year-old male presents to the emergency room with complaints of left shoulder pain and possible dislocation. Patient was seen yesterday for the same without dislocation. He states that today he was holding onto a trellis that gave way causing him to fall landing on his left shoulder. He felt a pop and again having difficulty with range of motion. His physical therapist told him to come for evaluation. Patient states that he did not hit his head or lose consciousness. No other injuries. Patient does have a shoulder immobilizer that he wears however is not wearing it at this time. He was offered pain medication upon arrival and declined. X-ray of the left shoulder interpreted by me shows no evidence of acute fracture, reverse total shoulder replacement that does not appear to articulate in the cup. Radiologist interpretation anterior superior dislocation of the humeral component from the glenoid component left shoulder. X-ray reviewed with Dr. Morgan my attending. Recommended patient follow-up with his orthopedic Dr Valverde on Monday as scheduled. Shoulder immobilzer placed in ER and he was directed to wear the shoulder immobilizer. No further physical therapy until released by ortho. Return with any increased pain, numbness or tingling. Patient and family member are agreeable to this plan of care. Undiagnosed new problem with uncertain prognosis? @ -No Drug Therapy requiring intensive monitoring for toxicity (Heparin, Nitro, Insulin, Cardizem)? @ -No Were any procedures done? @ -No Diagnosis/symptom? @ -Internal derangement left shoulder, left shoulder dislocation Acute, or Chronic, or Acute on Chronic? @ -Acute on chronic Uncomplicated (without systemic symptoms) or Complicated (systemic symptoms)? @ -Uncomplicated Side effects of treatment? @ -No Exacerbation, Progression, or Severe Exacerbation? @ -No Poses a threat to life or bodily function? How? (Chest pain, USA, OR, pneumonia, PE, COPD, DKA, ARF, appy, cholecystitis, CVA, Diverticulitis, Homicidal, Suicidal, threat to staff... and all critical care pts) @ -No Disposition Clinical Impression: Internal derangement of left shoulder, Fall, Chronic dislocation of left shoulder Disposition: HOME SELF-CARE Condition: Good Instructions (If sedation given, give patient instructions): Shoulder Dislocation (ED), Fall Prevention for Older Adults (ED), Shoulder Immobilizer (ED) Additional Instructions: Wear shoulder immobilizer until seen by orthopedic doctor as scheduled on Monday. Return to the emergency room if any new or concerning symptoms including increased pain, pallor or numbness. Is patient prescribed a controlled substance at d/c from ED?: No Referrals: Surinder Mckay MD [Primary Care Provider] - 1-2 days Time of Disposition: 20:23
--- NOTE | 2022-12-28 19:52 | XR ---
EXAMINATION TYPE: XR shoulder complete LT DATE OF EXAM: 12/28/2022 COMPARISON: 12/27/2022 HISTORY: Limited range of motion, pain TECHNIQUE: 3 view left shoulder FINDINGS: Left shoulder prosthesis is present. In the scapular Y view there appears to be in anterior superior dislocation. The humeral component does not articulate with the glenoid. No acute fractures are evident. Acromioclavicular joint hypertrophy is present. IMPRESSION: 1. Anterior superior Dislocation of the humeral component from the glenoid component left shoulder.
[2022-12-28 20:49] VITALS: BP 136/62; PULSE 72; RESP 18
== END 2022-12-28 20:49 | disposition home or self-care (01) ==
LOC: EC 18:58
DX: S43.005A Unspecified dislocation of left shoulder joint, initial encounter (principal); E78.5 Hyperlipidemia, unspecified; M19.90 Unspecified osteoarthritis, unspecified site; Z87.891 Personal history of nicotine dependence; Z88.8 Allergy status to other drugs, medicaments and biological substances; Z91.014 Allergy to mammalian meats; Z91.011 Allergy to milk products; Z91.048 Other nonmedicinal substance allergy status; Z79.82 Long term (current) use of aspirin; Z79.899 Other long term (current) drug therapy; W01.0XXA Fall on same level from slipping, tripping and stumbling without subsequent striking against object, initial encounter
CPT/HCPCS: 99284

== ENCOUNTER → 2023-01-27 | Outpatient (CLI) | payer OTHER, MEDICARE ==
[2023-01-27 12:12] LABS: Prothrombin Time 10.3 sec (9.0-12.0)
[2023-01-27 16:06] LABS: BUN/Creat Ratio 16.62 Ratio (12.00-20.00); Blood Urea Nitrogen 21.6 mg/dL (9.0-27.0); Carbon Dioxide 27.4 mmol/L (21.6-31.8); Chloride 104 mmol/L (96-109); Glucose 93 mg/dL (70-110); Potassium 5.5 mmol/L (3.5-5.5); Sodium 141 mmol/L (135-145)
[2023-01-27 21:06] LABS: HGB 11.8 d/dL (13.0-17.0); MCH 25.2 pg (27.0-32.0); MCHC 31.9 d/dL (32.0-37.0); MCV 79.1 FL (80.0-97.0); Mean Platelet Volume 10.5 FL (9.5-12.2); NRBC Per 100 WBC 0 X 10*3/uL (0.00-0.01); Platelet Count 246 X 10*3/uL (140-440); RBC 4.68 X 10*6/uL (4.40-5.60); RDW 15.6 % (11.5-14.5); WBC 5.86 X 10*3/uL (4.50-10.00)
== END | disposition home or self-care (01) ==
LOC: LABWHC1 10:16
PROVIDERS: ATTEND Orthopaedic Surgery
DX: Z01.812 Encounter for preprocedural laboratory examination (principal)
CPT/HCPCS: 36415; 80048; 83036; 85027; 85610; 85730; 86850; 86900; 86901; 87070

== ENCOUNTER → 2024-02-22 | Outpatient (CLI) | payer OTHER ==
[~2024-02-22] MED LIST changes: -DEXAMETHASONE SOD PHOSPHATE 4 MG/ML 1 ML VIAL IV ONE; +DOBUTamine DRIP for NUC MED 500 MG in DEXTROSE/WATER 1 250ML.BAG IV PRN; +DOBUTamine DRIP for NUC MED 500 MG/250 ML BAG IV ONE; -HYDROmorphone 0.5 MG/0.5 ML SYRINGE IVP PRN; -LACTATED RINGERS 1,000 ML IV SCH; -LIDOCAINE 1% (10MG/ML) FOR IV START INTRADERMA PRN; -MIDAZOLAM 2 MG/2 ML VIAL IV PRN; -ONDANSETRON 4 MG/2 ML VIAL IVP ONE
--- NOTE | 2024-02-22 11:39 | CA ---
Dobutamine Stress Echocardiogram Report Floyd Alcocer Age: 88 Gender: M : 1935 Exam Date: 02/22/2024 10:41 Exam Location: [facility] Ordering Physician: Darci Brown DO Referring Physician: Cynthia Wahl PAC Machine Binding Folder: NARA, Technologist: Ht (in): 70 Wt (lb): 182 Procedure CPT: Indication: R07.89 other chest pain ICD-9 Codes: Rhythm: Patient History: Chest pain, shortness of breath, Cardiac Medications: Medications in past 24 hours: Contrast: Total Dose (mL): Stress Results Protocol: Dobutamine Peak Dose (???g/kg/min): 30 Duration (min:sec): Atropine:(mg) Target HR: 114 Double Product: 80396 Resting HR: 62 Resting BP: 167 / 72 Peak HR: 119 Peak BP: 221 / 42 Max Predicted HR: 134 89 % Max Predicted HR Stress Summary: BP Response: Reason for Termination: Exceeded target heart rate (85% max predicted) Cardiac Symptoms: Chest pain #8 resolved after test ECG Analysis Resting EKG: Normal sinus rhythm, Right bundle branch block Stress EKG: No abnormal ST/T wave changes with exercise Arrhythmia: Occasional PVCs Echo Analysis Base Echo Analysis: Normal resting echocardiogram. Low Echo Anaylsis: Normal wall thickening and augmentation Peak Echo Analysis: Normal wall thickening and motion with decrease in the cavity size Recovery Echo: Normal wall motion MEASUREMENTS (Male/Female) Normal Values CONCLUSIONS 1. Normal electrocardiographic response to dobutamine infusion with occasional PVCs 2. Normal dobutamine stress echocardiogram with no evidence of stress induced ischemia Dr. Dai Webber MD (Electronically Signed) Final Date: 22 February 2024 11:38
== END | disposition home or self-care (01) ==
LOC: RADNMMAIN 09:54
PROVIDERS: ATTEND Family Medicine
DX: I49.3 Ventricular premature depolarization (principal)
CPT/HCPCS: 93351